=== PATIENT | male | born 1970 | race African-American/Black ===

== ENCOUNTER 2023-08-31 13:24 | Observation (INO) | payer OTHER, SELFPAY ==
--- NOTE | ~2023-08-31 | US_ITS ---
EXAMINATION: US renal BI DATE: 09/01/2023 09:11 INDICATION: TECHNIQUE: Multiple grayscale and Doppler ultrasound images of the kidneys were obtained. COMPARISON: None. FINDINGS: The right kidney measures 11.0 x 3.9 x 4.4 cm. The left kidney is obscured. The right kidne y demonstrates normal parenchymal echogenicity. There is no hydronephrosis. The bladder is mildly dis tended but otherwise unremarkable. IMPRESSION: 1. Normal right kidney without hydronephrosis. Left kidney obscured. Reviewed, dictated and finalized at location B. OGIC TECHNICIAN
[2023-08-31 14:07] VITALS: BP 190/96; PULSE 93; RESP 20; TEMP 36.3; O2SAT 97
[2023-08-31 14:23] LABS: Glucose Point of Care > 500 mg/dl (65-105)
--- NOTE | 2023-08-31 14:30 | ED.GENADULT ---
HPI - General Adult General Chief complaint: Recheck/Abnormal Lab/Rx Stated complaint: ETOH withdrawal, high blood sugar Time Seen by Provider: 08/31/23 14:26 History of Present Illness HPI narrative: Patient denies any chest pain, shortness of breath, nausea, vomiting, abdominal pain, dysuria, hematuria, constipation, diarrhea, melena, hematochezia, fevers or chills. Patient also denies any headaches, dizziness, lightheadedness, blurry visions, focal weakness, numbness and or tingling. There are no other modifying, alleviating, or precipitating factors at this time. Related Data Allergies Allergy/AdvReac Type Severity Reaction Status Date / Time No Known Allergies Allergy Verified 08/31/23 14:14 Review of Systems Review of Systems: All systems are reviewed and are negative unless stated otherwise in the HPI. Exam Narrative: General: Alert, awake, afebrile, in no acute distress. HEENT: PERRL, no rhinorrhea, no post nasal drip, oropharynx clear. Neck: Trachea midline, no JVD, no lymphadenopathy. Cardiovascular: Regular rate and rhythm, no murmurs, rubs or gallops, no peripheral edema. Respiratory: Clear to auscultation bilaterally, no tachypnea, no wheezing, no rhonchi, no rubs, no respiratory distress. Abdomen: Soft, nontender, nondistended, no rebound, no guarding, no peritoneal signs. Musculoskeletal: No joint swelling or deformity, normal muscle tone. Skin: No rashes or petechia, no signs of infection. Psychiatric: Alert and oriented, normal behavior and judgment for situation. Neurological: Alert and oriented to person, place, and time. Follows all commands. No focal deficits, speech is clear and fluent. Course Vital Signs Vital signs: Vital Signs Temperature 97.4 F L 08/31/23 14:07 Pulse Rate 93 08/31/23 14:07 Respiratory Rate 20 08/31/23 14:07 Blood Pressure 190/96 H 08/31/23 14:07 Pulse Oximetry 97 08/31/23 14:07 Oxygen Delivery Room Air 08/31/23 14:07 Temperature 97.4 F L 08/31/23 14:07 Pulse Rate 94 08/31/23 16:35 Respiratory Rate 20 08/31/23 16:35 Blood Pressure 150/99 H 08/31/23 16:35 Pulse Oximetry 98 08/31/23 16:35 Oxygen Delivery Room Air 08/31/23 14:07 Medical Decision Making MDM Narrative Medical decision making narrative: The patient was evaluated by myself in the emergency department. History is obtained from patient who is an independent historian and physical exam was performed. External medical records were reviewed at this time. IV was established and pertinent tests were ordered. Patient was administered a 2 L fluid bolus with normal saline and maintenance fluids at a rate of 150 cc/hour. EKG was obtained at 1550 which revealed sinus rhythm at a rate of 93 beats per minute with [address] elevation in leads V1 &V2 which is consistent with patient's hyperkalemia of 6.9. T-wave inversion in leads V5 and V6. EKG was independently interpreted by me and is currently pending official cardiology read. Patient denies any chest pain within the last week and is currently chest pain-free. Repeat EKG obtained at 1732 revealed sinus tachycardia rate of 102 beats per minute with similar findings to previous EKG. Laboratory results obtained revealing a potassium level of 6.9, sodium of 115, 136 after correcting for hyperglycemia, potassium 6.7, chloride 75, bicarb 19, anion gap 21, BUN 35, creatinine 1.70, glucose of 1339, magnesium 2.8, beta hydroxybutyrate 4.31. Urinalysis revealed 3+ glucose, 1+ ketones. At this time, patient was started on an insulin drip at a rate of 0.1 units/kg. Differential diagnosis considerations include DKA versus HHS. Comorbidities impacting this visit include undiagnosed diabetes mellitus. I have evaluated and discussed social determinants of health with the patient that could potentially impact subsequent diagnosis and treatment plans. On repeat assessment of the patient, reevaluation revealed that the patient is doing well
[2023-08-31] MEDS: SODIUM CHLORIDE 0.9% IV 1,000 ML 999 ML IV CONT ×3 (14:41→18:11)
[2023-08-31 14:44] LABS: Basophils Absolute Auto 0.1 K/mm3 (0.0-0.1); Basophils Percent Auto 0.6 % (0.2-1.2); Hemoglobin 12.5 g/dL (14.0-18.0); Immature Granulocyte Absolute 0.04 K/mm3 (0.00-0.031); Immature Granulocyte Percent A 0.5 % (0-0.5); Lymphocytes Absolute Auto 0.74 K/mm3 (0.9-3.2); Lymphocytes Percent Auto 8.6 % (18.3-44.2); Mean Corpuscular HGB Conc 30.5 g/dl (32-36); Mean Corpuscular Hemoglobin 21.8 pg (26-34); Mean Corpuscular Volume 71.6 fl (80-100); Monocytes Absolute Auto 0.7 K/mm3 (0.1-0.6); Monocytes Percent Auto 7.5 % (2.6-8.5); Neutrophils Absolute Auto 7.1 K/mm3 (1.3-6.7); Neutrophils Percent Auto 82.8 % (45.5-73.1); Platelet Count Result 485 k/mm3 (150-375); Red Blood Count 5.73 M/mm3 (4.6-6.20); Red Cell Distribution Width 15.6 % (11.5-14.5); White Blood Count 8.6 K/mm3 (4.5-10.0)
[2023-08-31 14:47] VITALS: BP 159/89; PULSE 93; RESP 20; O2SAT 98
[2023-08-31 14:55] LABS: Anisocytosis 1+ (NORMAL); Microcytosis 1+ (NORMAL); Platelet Estimate Increased (Adequate)
[2023-08-31 14:56] LABS: Ovalocytes 1+ (NORMAL); Schistocytes None Seen (NORMAL)
[2023-08-31 14:59] LABS: Beta-Hydroxybutyrate/Acetoacetate 4.31 mmol/L (0.02-0.27)
[2023-08-31 15:03] LABS: Appearance Urine Clear (Clear); Bilirubin Urine Negative (Negative); Blood Urine Negative (Negative); Color Urine Yellow (Yellow); Glucose Urine UA 3+ mg/dL (Negative); Ketones Urine 1+ mg/dL (Negative); Leukocyte Esterase Ur Negative LEU/UL (Negative); Nitrate Urine Negative (Negative); Protein Urine Negative (Negative); Specific Grav Ur 1.031 (1.001-1.035); Urobilinogen Urine 0.2 mg/dL (<2.0)
[2023-08-31 15:14] LABS: Add Urine Microscopic? NO
[2023-08-31 15:25] LABS: Alanine Aminotransferase 27 U/L (6-50); Albumin Level 4.2 g/dL (3.5-5.1); Alkaline Phosphatase 183 U/L (38-126); Anion Gap 21 mmol/L (8-16); Aspartate Amino Transferase 26 U/L (17-59); Bilirubin,Total 0.8 mg/dL (0.2-1.3); Blood Urea Nitrogen 35 mg/dL (9-20); Calcium 9.1 mg/dL (8.4-10.2); Carbon Dioxide 19 mmol/L (22-30); Chloride 75 mmol/L (98-107); Estimated CRCL calculation 54 ml/min; Estimated Glomerular Filt Rate 51; Magnesium 2.8 mg/dL (1.6-2.3); Potassium 6.7 mmol/L (3.4-5.0); Sodium 115 mmol/L (137-145)
--- NOTE | 2023-08-31 15:32 | ECG_ITS ---
Measurements Intervals [place] Rate: 93 P: 71 NH: 178 QRS: 64 QRSD: 97 T: 117 QT: 364 QTc: 453 Interpretive Statements SINUS RHYTHM POSSIBLE RIGHT ATRIAL ENLARGEMENT [0.25mV P WAVE] LEFT ATRIAL ENLARGEMENT [-0.15mV P WAVE IN V1/V2] LEFT VENTRICULAR HYPERTROPHY AND ST-T CHANGE [VOLTAGE CRITERIA PLUS ST/T ABNORMALITY] POSSIBLE SEPTAL MYOCARDIAL INFARCTION , OF INDETERMINATE AGE [30 ms Q WAVE IN V1/V2] ABNORMAL ECG NO PREVIOUS ECG AVAILABLE FOR COMPARISON Electronically Signed On 09-01-2023 7:06:47 BENZOL STILL OPERATOR by Rajiv Chakraborty M.D.
[2023-08-31 15:33] LABS: Glucose 1339 mg/dL (65-110)
[2023-08-31] MEDS: INSULIN HUMAN REGULAR (*BKC) 100 UNITS in SODIUM CHLORIDE 0.9% IV 99 ML 11.5 UNITS IV CONT (16:32)
[2023-08-31] MEDS: SODIUM CHLORIDE 0.9% IV 1,000 ML 150 ML IV CONT ×2 (16:32→23:42)
[2023-08-31 16:35] VITALS: BP 150/99; PULSE 94; RESP 20; O2SAT 98
[2023-08-31 17:03] LABS: Anion Gap 18 mmol/L (8-16); Blood Urea Nitrogen 37 mg/dL (9-20); Calcium 8.9 mg/dL (8.4-10.2); Carbon Dioxide 20 mmol/L (22-30); Chloride 79 mmol/L (98-107); Estimated CRCL calculation 54 ml/min; Estimated Glomerular Filt Rate 51; Glucose 1181 mg/dL (65-110); Potassium 6.9 mmol/L (3.4-5.0); Sodium 117 mmol/L (137-145)
--- NOTE | 2023-08-31 17:13 | ECG_ITS ---
Measurements Intervals [place] Rate: 102 P: 70 NV: 140 QRS: 61 QRSD: 94 T: 93 QT: 336 QTc: 438 Interpretive Statements SINUS TACHYCARDIA LEFT ATRIAL ENLARGEMENT [-0.15mV P WAVE IN V1/V2] LEFT VENTRICULAR HYPERTROPHY AND ST-T CHANGE [VOLTAGE CRITERIA PLUS ST/T ABNORMALITY] ABNORMAL ECG COMPARED TO ECG 08/31/2023 15:50:59 NO SIGNIFICANT CHANGE Electronically Signed On 09-01-2023 15:27:50 AGRICULTURAL EQUIPMENT OPERATOR by Rajiv Chakraborty M.D.
[2023-08-31 17:20] LABS: Hemoglobin A1C 13.5 % (<5.7)
[2023-08-31 17:35] LABS: Glucose Point of Care > 500 mg/dl (65-105)
[2023-08-31 18:21] VITALS: BP 148/84; PULSE 102; RESP 20; O2SAT 96
--- NOTE | 2023-08-31 18:30 | ADMGEN ---
This patient, Daniela Tian, was admitted to Intensive Care Unit-7. Patient/family oriented to hospital policies and general routines including ID bracelet, bed and alarms, visiting hours, pain management, procedures, bathroom and other care routines, personal items, smoking policy, room service/diet, and visiting hours. Information on how to activate the Rapid Response Team has been discussed. Patient/Family are encouraged to report perceived risks to care and to ask questions if they do not understand what they are told or what they should do.
[2023-08-31 18:41] LABS: Glucose Point of Care > 500 mg/dl (65-105)
[2023-08-31 19:45] LABS: Glucose Point of Care > 500 mg/dl (65-105)
[2023-08-31 20:00] VITALS: BP 148/125; PULSE 93; RESP 18; TEMP 36.6; O2SAT 94
[2023-08-31 21:18] LABS: Anion Gap 12 mmol/L (8-16); Blood Urea Nitrogen 32 mg/dL (9-20); Calcium 9.5 mg/dL (8.4-10.2); Carbon Dioxide 25 mmol/L (22-30); Chloride 93 mmol/L (98-107); Estimated CRCL calculation 56 ml/min; Estimated Glomerular Filt Rate 55; Glucose 479 mg/dL (65-110); Potassium 4.1 mmol/L (3.4-5.0); Sodium 130 mmol/L (137-145)
[2023-08-31 22:00] VITALS: BP 142/76; PULSE 94; RESP 22; O2SAT 90
[2023-08-31 22:20] LABS: Glucose Point of Care 441 mg/dl (65-105)
[2023-08-31] MEDS: INSULIN HUMAN REGULAR (*BKC) 100 UNITS in SODIUM CHLORIDE 0.9% IV 99 ML 25 UNITS IV CONT (22:30)
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
[2023-08-31 23:56] LABS: Glucose Point of Care 263 mg/dl (65-105)
[2023-08-31 23:56] LABS: Glucose Point of Care > 500 mg/dl (65-105)
[2023-09-01] VITALS (13 sets, daily range): BP systolic 122–151; BP diastolic 76–114; PULSE 88–108; RESP 14–23; TEMP 36.1–37.2; O2SAT 92–97; BMI 40.1
[2023-09-01 01:57] LABS: Immature Reticulocyte Fraction 5.5 % (3.0-15.9); Reticulocyte Hemoglobin Conten 26.5 pg (28.2-35.7); Reticulocyte Percent 0.66 % (0.7-4.3); Reticulocytes Absolute 0.04 M/mm3 (0.02-0.1)
[2023-09-01 02:05] LABS: Glucose Point of Care 68 mg/dl (65-105)
[2023-09-01 02:05] LABS: Glucose Point of Care 57 mg/dl (65-105)
[2023-09-01 02:08] LABS: Iron 40 ug/dL (49-181)
[2023-09-01 02:09] LABS: Anion Gap 11 mmol/L (8-16); Blood Urea Nitrogen 28 mg/dL (9-20); Calcium 9.5 mg/dL (8.4-10.2); Carbon Dioxide 25 mmol/L (22-30); Chloride 101 mmol/L (98-107); Estimated CRCL calculation 69 ml/min; Estimated Glomerular Filt Rate > 60; Glucose 86 mg/dL (65-110); Potassium 3.4 mmol/L (3.4-5.0); Sodium 137 mmol/L (137-145)
[2023-09-01] MEDS: KCL 20 MEQ/D5/0.45% SOD CHL 1,000 ML 150 ML IV CONT (02:15)
[2023-09-01] MEDS: DEXTROSE 50% 25 GM/50 ML SYRINGE IV PUSH (02:30)
[2023-09-01 02:36] LABS: Percent Iron Saturation 17 % (20-50)
[2023-09-01 02:40] LABS: Glucose Point of Care 235 mg/dl (65-105)
[2023-09-01] MEDS: INSULIN HUMAN REGULAR (*BKC) 100 UNITS in SODIUM CHLORIDE 0.9% IV 99 ML 12.8 UNITS IV CONT (03:01)
[2023-09-01 03:33] LABS: Folic Acid 5.2 ng/mL (2.76->20)
[2023-09-01 03:42] LABS: Glucose Point of Care 125 mg/dl (65-105)
[2023-09-01 04:57] LABS: Hematocrit 37.4 % (42.0-52.0); Hemoglobin 12.2 g/dL (14.0-18.0); Mean Corpuscular HGB Conc 32.6 g/dl (32-36); Mean Corpuscular Hemoglobin 22.6 pg (26-34); Mean Corpuscular Volume 69.1 fl (80-100); Mean Platelet Volume 10.5 fl (7.4-10.4); Platelet Count Result 458 k/mm3 (150-375); Red Blood Count 5.41 M/mm3 (4.6-6.20); Red Cell Distribution Width 14.7 % (11.5-14.5); White Blood Count 9.9 K/mm3 (4.5-10.0)
[2023-09-01 05:00] LABS: Glucose Point of Care 128 mg/dl (65-105)
[2023-09-01 05:15] LABS: Anion Gap 5 mmol/L (8-16); Blood Urea Nitrogen 28 mg/dL (9-20); Calcium 9.1 mg/dL (8.4-10.2); Carbon Dioxide 30 mmol/L (22-30); Chloride 101 mmol/L (98-107); Estimated CRCL calculation 69 ml/min; Estimated Glomerular Filt Rate > 60; Glucose 111 mg/dL (65-110); Magnesium 2.6 mg/dL (1.6-2.3); Potassium 4.4 mmol/L (3.4-5.0); Sodium 136 mmol/L (137-145)
[2023-09-01] MEDS: INSULIN GLARGINE (*BKC) 100 UNITS/ML 15 UNITS SUB-Q (06:03)
[2023-09-01] MEDS: THIAMINE HCL 100 MG TABLET PO (08:02)
[2023-09-01] MEDS: FOLIC ACID 1 MG TABLET PO (08:02)
[2023-09-01] MEDS: chlordiazePOXIDE (*CRX) 25 MG CAPSULE PO ×4 (08:02→23:30)
[2023-09-01] MEDS: ENOXAPARIN 40 MG/0.4 ML SYRINGE SUB-Q (08:02)
[2023-09-01 08:07] LABS: Glucose Point of Care 275 mg/dl (65-105)
--- NOTE | 2023-09-01 08:40 | PC.NURSE ---
Patient refused MRSA swab
--- NOTE | 2023-09-01 08:40 | PC.NURSE ---
Patient placed his $321 in envelope, sealed envelope and charge nurse, Miesha Costa, placed envelope in safe as per facility protocol
--- NOTE | 2023-09-01 09:11 | WPDCNINT ---
Assessment and Plan Assessment and plan (1) DKA (diabetic ketoacidosis): Code(s): E11.10 - Type 2 diabetes mellitus with ketoacidosis without coma Status: Acute Assessment and Plan: Patient presented the ED with complains of polyuria, polydipsia, generalized malaise, nausea/vomiting. Was found to be in DKA with elevated beta hydroxybutyrate, anion gap metabolic acidosis, blood sugars > 600, urinalysis was positive for ketones and glucose. -Patient was given 3 L IV fluid bolus and started on insulin infusion per DKA protocol and transferred to the ICU for further management -early this morning patient was transition to long-acting insulin and sliding scale insulin, will discontinue insulin infusion per DKA protocol -will start diabetic diet (2) New onset type 2 diabetes mellitus: Code(s): E11.9 - Type 2 diabetes mellitus without complications Status: Acute Assessment and Plan: New onset diabetes, will have environmental educator and dietitian evaluate the patient -hemoglobin A1c this admission was 13.5 (3) Renal failure: Code(s): N19 - Unspecified kidney failure Status: Acute Assessment and Plan: Patient presented with acute renal failure likely related to hypovolemia, DKA -adequately fluid-resuscitated -creatinine down to normal -09/01: Renal ultrasound has been done and pending report (4) Hyperkalemia: Code(s): E87.5 - Hyperkalemia Status: Acute Assessment and Plan: Hyperkalemia on admission, likely related to diabetic ketoacidosis and anion gap metabolic acidosis -RESOLVED (5) Alcohol abuse: Code(s): F10.10 - Alcohol abuse, uncomplicated Status: Acute Assessment and Plan: Patient is a daily drinker but has not had a drink for a month according to him since he was feeling unwell and this bad. -continue CIWA protocol -have ordered Librium Plan DVT prophylaxis: Lovenox Stress ulcer prophylaxis: Not indicated Nutrition: Diabetic diet Code Status: Full code Critical Care Time Spent: 44 minutes Due to a high probability of clinically significant, life threatening deterioration, the patient required my highest level of preparedness to intervene emergently and I personally spent this critical care time directly and personally managing the patient. This critical care time included obtaining a history; examining the patient; pulse oximetry; ordering and review of studies; arranging urgent treatment with development of a management plan; evaluation of patient's response to treatment; frequent reassessment; and discussions with other providers. It was exclusive of separately billable procedures and treating other patients and teaching time. Please see Assessment and Plan section and the rest of the note for further information on patient assessment and treatment This dictation may have been done utilizing a voice recognition system. Attempts have been made to correct errors. However, there may be uncorrected grammatical, spelling, and recognitions errors present. Pre Sales Technical Consultant Consult Note Consult date: 09/01/23 Reason for consult: Diabetic ketoacidosis, polyuria, polydipsia, frequent nausea, generalized malaise, weight loss HPI: Daniela Tian is a 53 year old male with past medical history of alcohol abuse presented to the ED on 08/31/2023 with complaints of polyuria, polydipsia, frequent nausea, vomiting, generalized malaise, he also stated that he lost approximately 30 lb over several months. Family noted that he was more lethargic and slow to respond so was brought to the [place] ER with blood sugars were over 600, anion gap metabolic acidosis with elevated beta hydroxybutyrate. Urine analysis was positive for glucose and ketones creatinine was 1.70 on admission. Patient was given 3 L IV fluids in the ER and started on insulin infusion and transfer the ICU for further management Patient seen and examined in the ICU this morning, patient is a p
[2023-09-01] MEDS: INSULIN GLARGINE (*BKC) 100 UNITS/ML 10 UNITS SUB-Q (10:07)
[2023-09-01] MEDS: INSULIN ASPART (*BKC) 100 UNITS/ML SUB-Q ×2 (11:22→17:49)
[2023-09-01 11:26] LABS: Glucose Point of Care 411 mg/dl (65-105)
[2023-09-01 11:55] LABS: Glucose Point of Care 363 mg/dl (65-105)
[2023-09-01 11:55] LABS: Glucose Point of Care 192 mg/dl (65-105)
[2023-09-01] MEDS: INSULIN ASPART (*BKC) 100 UNITS/ML 10 UNITS SUB-Q ×2 (12:23→17:48)
[2023-09-01 12:50] LABS: Anion Gap 7 mmol/L (8-16); Blood Urea Nitrogen 26 mg/dL (9-20); Calcium 8.4 mg/dL (8.4-10.2); Carbon Dioxide 23 mmol/L (22-30); Chloride 97 mmol/L (98-107); Estimated CRCL calculation 74 ml/min; Estimated Glomerular Filt Rate > 60; Glucose 351 mg/dL (65-110); Potassium 4.2 mmol/L (3.4-5.0); Sodium 127 mmol/L (137-145)
--- NOTE | 2023-09-01 14:30 | PC.NURSE ---
This patient, Daniela Tian, was transferred to [facility] on 09/01/23 at 1430. Personal belongings sent with patient. Report given to Ashley. Appropriate documentation sent with patient.
--- NOTE | 2023-09-01 15:00 | PC.NURSE ---
This patient, Daniela Tian, was received from ICU 7 on 09/01/23 at 1500. Patient/family oriented to unit policies and routines
[2023-09-01 16:28] LABS: Glucose Point of Care 212 mg/dl (65-105)
[2023-09-01 16:30] LABS: Anion Gap 8 mmol/L (8-16); Blood Urea Nitrogen 25 mg/dL (9-20); Calcium 9.1 mg/dL (8.4-10.2); Carbon Dioxide 24 mmol/L (22-30); Chloride 98 mmol/L (98-107); Estimated CRCL calculation 69 ml/min; Estimated Glomerular Filt Rate > 60; Glucose 199 mg/dL (65-110); Potassium 3.8 mmol/L (3.4-5.0); Sodium 130 mmol/L (137-145)
[2023-09-01] MEDS: INSULIN GLARGINE (*BKC) 100 UNITS/ML 25 UNITS SUB-Q (20:38)
[2023-09-01 20:57] LABS: Glucose Point of Care 134 mg/dl (65-105)
[2023-09-02 04:00] VITALS: BP 122/89
[2023-09-02] MEDS: chlordiazePOXIDE (*CRX) 25 MG CAPSULE PO ×2 (05:49→11:47)
[2023-09-02 05:56] LABS: Basophils Absolute Auto 0.1 K/mm3 (0.0-0.1); Basophils Percent Auto 1.1 % (0.2-1.2); Eosinophils Absolute Auto 0.4 K/mm3 (0-0.3); Eosinophils Percent Auto 6.7 % (0-4.4); Hematocrit 39.2 % (42.0-52.0); Hemoglobin 12.3 g/dL (14.0-18.0); Immature Granulocyte Absolute 0.02 K/mm3 (0.00-0.031); Immature Granulocyte Percent A 0.3 % (0-0.5); Lymphocytes Absolute Auto 1.66 K/mm3 (0.9-3.2); Lymphocytes Percent Auto 25.2 % (18.3-44.2); Mean Corpuscular HGB Conc 31.4 g/dl (32-36); Mean Corpuscular Hemoglobin 22.1 pg (26-34); Mean Corpuscular Volume 70.4 fl (80-100); Mean Platelet Volume 10.7 fl (7.4-10.4); Monocytes Absolute Auto 0.8 K/mm3 (0.1-0.6); Monocytes Percent Auto 12.1 % (2.6-8.5); Neutrophils Absolute Auto 3.6 K/mm3 (1.3-6.7); Neutrophils Percent Auto 54.6 % (45.5-73.1); Platelet Count Result 401 k/mm3 (150-375); Red Blood Count 5.57 M/mm3 (4.6-6.20); Red Cell Distribution Width 15.2 % (11.5-14.5); White Blood Count 6.6 K/mm3 (4.5-10.0)
[2023-09-02 06:00] VITALS: BP 127/84; PULSE 79; RESP 18; TEMP 36.6; O2SAT 98
[2023-09-02 06:07] LABS: Anion Gap 8 mmol/L (8-16); Blood Urea Nitrogen 25 mg/dL (9-20); Calcium 8.5 mg/dL (8.4-10.2); Carbon Dioxide 24 mmol/L (22-30); Chloride 99 mmol/L (98-107); Estimated CRCL calculation 69 ml/min; Estimated Glomerular Filt Rate > 60; Glucose 259 mg/dL (65-110); Magnesium 2.2 mg/dL (1.6-2.3); Sodium 131 mmol/L (137-145)
[2023-09-02 06:57] LABS: Microcytosis 1+ (NORMAL); Platelet Estimate Adequate (Adequate); Schistocytes Rare (NORMAL)
[2023-09-02 06:58] LABS: Target Cells 1+ (NORMAL)
[2023-09-02 08:08] LABS: Glucose Point of Care 290 mg/dl (65-105)
[2023-09-02] MEDS: INSULIN ASPART (*BKC) 100 UNITS/ML 10 UNITS SUB-Q ×2 (08:20→11:48)
[2023-09-02] MEDS: INSULIN ASPART (*BKC) 100 UNITS/ML SUB-Q ×2 (08:21→11:49)
[2023-09-02] MEDS: ENOXAPARIN 40 MG/0.4 ML SYRINGE SUB-Q (08:22)
[2023-09-02] MEDS: FOLIC ACID 1 MG TABLET PO (08:23)
[2023-09-02] MEDS: THIAMINE HCL 100 MG TABLET PO (08:23)
[2023-09-02 11:26] LABS: Glucose Point of Care 317 mg/dl (65-105)
--- NOTE | 2023-09-02 13:33 | PM.DS ---
DS: Admitting Diagnosis Discharge Date September 02, 2023 Admitting Diagnosis DKA DS: Discharge Diagnosis Discharge Diagnosis (1) Alcohol abuse: Code(s): F10.10 - Alcohol abuse, uncomplicated Status: Acute (2) New onset type 2 diabetes mellitus: Code(s): E11.9 - Type 2 diabetes mellitus without complications Status: Acute (3) Diabetic ketoacidosis associated with type 2 diabetes mellitus: Code(s): E11.10 - Type 2 diabetes mellitus with ketoacidosis without coma Status: Acute (4) DKA (diabetic ketoacidosis): Code(s): E11.10 - Type 2 diabetes mellitus with ketoacidosis without coma Status: Acute (5) Renal failure: Code(s): N19 - Unspecified kidney failure Status: Acute DS: Summary Hospital Course Hospital Course: 53-year-old black male with past medical history alcohol abuse who presented to [place] ED with complaints of polyuria polydipsia nausea vomiting malaise and 30 lb weight loss over several months. The patient was admitted for DKA and renal failure. With the DKA protocol his renal failure and acidosis resolved. His hemoglobin A1c on admission was 13.5%. This is a new diagnosis diabetes mellitus. Extensive counseling and education has been provided to the patient including disease course, adverse effects of medications, lifestyle modification needed, and very importantly follow-up. Not have a PCP and reports he will have close follow-up and it is recommended he see a new 1 within a week. Have ordered Diabetes Education therapy. BMP in 3 days. He reports his last drink was a month ago. Had no signs of withdrawal. He is discharged on 25 units of Lantus q.p.m. and 12 units of lispro t.i.d. with meals and again stressed to the patient he should have close follow-up for management of this with his new PCP. He has been provided glucose meter check and advised to check his blood sugars 3 times per day and report high or low sugars to his PCP for further management. The patient is understanding and amenable to this plan and he knows to return to the ER if he has return of symptoms. Patient was full code during his admission Time Spent with Patient Time attestation: Total time spent providing and/or coordinating discharge services: Exam Const: General: cooperative and no acute distress Other: Obese Resp: Effort & Inspection: normal respiratory effort Auscultation: clear to auscultation bilaterally Cardio: Rate: regular rate Rhythm: regular rhythm Heart sounds: S1 normal heart sound present and S2 normal heart sound present GI: GI Palp: No abdominal tenderness Auscultation: normal bowel sounds DS: Data Data Completed and Pending Labs on day of discharge: Labs from last 24 hours 09/02/23 09/02/23 09/02/23 11:17 07:56 05:49 WBC 6.6 RBC 5.57 Hgb 12.3 L Hct 39.2 L MCV 70.4 L MCH 22.1 L MCHC 31.4 L RDW 15.2 H Plt Count 401 H MPV 10.7 H Immature Gran % (Auto) 0.3 Neut % (Auto) 54.6 Lymph % (Auto) 25.2 [place] % (Auto) 12.1 H Eos % (Auto) 6.7 H Baso % (Auto) 1.1 Lymph # (Auto) 1.66 [place] # (Auto) 0.8 H Eos # (Auto) 0.4 H Baso # (Auto) 0.1 Abs Immat Gran (auto) 0.02 Absolute Neuts (auto) 3.6 Absolute Nucleated RBC 0.0 Nucleated RBC % 0.0 Platelet Estimate Adequate Microcytosis 1+ Target Cells 1+ Schistocytes Rare Sodium 131 L Potassium 4.0 Chloride 99 Carbon Dioxide 24 Anion Gap 8 BUN 25 H Creatinine 1.30 Estim Creat Clear Calc 69 Estimated GFR > 60 Glucose 259 H POC Capillary Glucose 317 H 290 H Calcium 8.5 Magnesium 2.2 09/01/23 09/01/23 09/01/23 20:07 16:18 16:09 WBC RBC Hgb Hct MCV MCH MCHC RDW Plt Count MPV Immature Gran % (Auto) Neut % (Auto) Lymph % (Auto) [place] % (Auto) Eos % (Auto) Baso % (Auto) Lymph # (Auto) [place] # (Auto)
== END 2023-09-02 14:40 | disposition home or self-care (01) ==
LOC: ANHED 17:26 → ANHICU 19:57 → ANH3MEDSUR 09-02 13:33 → ANHICU 09-04 11:09
PROVIDERS: Internal Medicine; Physician Assistant; Admitting Provider Internal Medicine; Emergency Provider Emergency Medicine; Visit Provider General Practice
DX: E11.10 Type 2 diabetes mellitus with ketoacidosis without coma (principal); N19 Unspecified kidney failure; E87.5 Hyperkalemia; I10 Essential (primary) hypertension; D50.9 Iron deficiency anemia, unspecified; R03.0 Elevated blood-pressure reading, without diagnosis of hypertension; R94.31 Abnormal electrocardiogram [ECG] [EKG]; F10.10 Alcohol abuse, uncomplicated; F12.90 Cannabis use, unspecified, uncomplicated
CPT/HCPCS: 36415; 76775; 80048; 80053; 81003; 82010; 82607; 82728; 82746; 82948; 83036; 83540; 83550; 83735; 84443; 85025; 85027; 85046; 93005; 96360; 96361; 96365; 96366; 96368; 96372; 96375; 99285; A9270; G0378; J1650; J1815; J3480; J7030

== ENCOUNTER 2025-04-12 15:05 | Inpatient (IN) | payer OTHER, SELFPAY ==
[2025-04-12] VITALS (25 sets, daily range): BP systolic 146–172; BP diastolic 65–96; PULSE 82–101; RESP 16–22; TEMP 36.8; O2SAT 96–100
--- NOTE | ~2025-04-12 | US_ITS ---
EXAMINATION: US abdomen limited DATE: 04/13/2025 07:56 INDICATION: Abdominal pain. TECHNIQUE: Multiple grayscale and Doppler ultrasound images of the abdomen were obtained. COMPARISON: CT 04/12/2025 FINDINGS: The visualized portions of the head and body of the pancreas are normal, but ultrasound has poor sensitivity for pancreatitis. The liver is normal without focal lesion. There is normal flow in main portal vein. The gallbladder is normal in size. No gallstones or gallbladder wall thickening. T here is no sonographic Phelps's sign. The common duct is dilated to 9 mm. IMPRESSION: 1. Dilated common duct. Reviewed, dictated and finalized at location E. IMPRESSION: 1. Dilated common duct.
--- NOTE | ~2025-04-12 | CT_ITS ---
EXAMINATION: CT abdomen pelvis w con DATE: 04/12/2025 23:14 INDICATION: Epigastric abdominal pain. Nausea and vomiting. TECHNIQUE: Computed tomography (CT) of the abdomen and pelvis was performed with 100 mL Omnipaque 350 intravenous contrast. Automated exposure control and iterative reconstruction technique were employed. The dose-length product was 1685.72 mGy-cm. COMPARISON: None. FINDINGS: The visualized portions of the lung bases demonstrate mild atelectasis. No pleural effusion. The heart size is normal. No pericardial effusion. The liver, gallbladder, and spleen are normal. There is fat stranding and fluid around the pancreas, consistent with acute interstitial pancreatitis. The adrenal glands are normal. 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 There is a 6 mm cyst in left kidney. There is a right inguinal hernia containing fat. There are no dilated loops of bowel. The appendix is normal. There are no pathologically enlarged lymph nodes. There is a radiopaque foreign body in right parasymphyseal pubis. There is mild thoracic and lumbar spondylosis. IMPRESSION: 1. Acute interstitial pancreatitis. Reviewed, dictated and finalized at location E.
--- NOTE | 2025-04-12 15:16 | ECG_ITS ---
Test Date: 2025-04-12 15:22:30 Measurements Intervals [place] Rate: 83 P: 62 IA: 168 QRS: 57 QRSD: 98 T: 89 QT: 391 QTc: 460 Interpretive Statements SINUS RHYTHM NONSPECIFIC T-WAVE ABNORMALITY ABNORMAL ECG No previous ECG available for comparison Electronically Signed On 04-13-2025 08:16:50 CDT by Rajiv Chakraborty M.D.
[2025-04-12] MEDS: MAG HYDROX/AL HYDROX/SIMETH 30 ML UDC PO (20:04)
[2025-04-12] MEDS: ONDANSETRON HCL ODT 4 MG TABLET PO (20:04)
[2025-04-12 20:06] LABS: Hematocrit 38.8 % (42.0-52.0); Hemoglobin 12.6 g/dL (14.0-18.0); Immature Granulocyte Percent A 0.3 % (0-0.5); Lymphocytes Absolute Auto 0.97 K/mm3 (0.9-3.2); Mean Corpuscular HGB Conc 32.5 g/dl (32-36); Mean Corpuscular Hemoglobin 23.1 pg (26-34); Mean Corpuscular Volume 71.1 fl (80-100); Nucleated Red Blood Cells Absolute Auto 0.000 K/mm3 (0.0-0.012); Nucleated Red Blood Cells Perc 0.0 % (0.0-0.2); Platelet Count Result 256 k/mm3 (150-375); Red Blood Count 5.46 M/mm3 (4.6-6.20); White Blood Count 9.5 K/mm3 (4.5-10.0)
[2025-04-12 20:18] LABS: Anisocytosis 1+; Schistocytes None Seen
[2025-04-12 20:24] LABS: Alanine Aminotransferase 65 U/L (6-50); Albumin Level 4.6 g/dL (3.5-5.1); Alkaline Phosphatase 69 U/L (38-126); Anion Gap 9 mmol/L (4-12); Aspartate Amino Transferase 51 U/L (17-59); Bilirubin,Total 1.1 mg/dL (0.2-1.3); Blood Urea Nitrogen 16 mg/dL (9-20); Calcium 9.1 mg/dL (8.4-10.2); Carbon Dioxide 25 mmol/L (22-30); Chloride 99 mmol/L (98-107); Estimated CRCL calculation 84 ml/min; Estimated Glomerular Filt Rate > 60; Glucose 148 mg/dL (65-110); Potassium 3.7 mmol/L (3.4-5.0); Sodium 133 mmol/L (137-145); Total Protein 8.5 g/dL (6.3-8.2)
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
[2025-04-12 21:34] LABS: Lipase 6075 U/L (23-300)
[2025-04-12] MEDS: KETOROLAC 15 MG/ML VIAL (*BKC) IV PUSH (21:42)
[2025-04-12] MEDS: MORPHINE SULFATE (*CRX) 2 MG/ML INJ IV PUSH (21:42)
[2025-04-12] MEDS: LACTATED RINGERS 1,000 ML 999 ML IV CONT (21:43)
[2025-04-13] VITALS (15 sets, daily range): BP systolic 138–181; BP diastolic 81–101; PULSE 96–106; RESP 17–20; TEMP 35.8–36.6; O2SAT 91–100; BMI 52.7
[2025-04-13] MEDS: LACTATED RINGERS 1,000 ML 999 ML IV CONT (01:37)
[2025-04-13] MEDS: MORPHINE SULFATE (*CRX) 4 MG/ML INJ IV PUSH (01:37)
[2025-04-13] MEDS: LACTATED RINGERS 1,000 ML 125 ML IV CONT ×3 (02:10→20:26)
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
[2025-04-13] MEDS: HYDROmorphone HCL INJ (*CRX) 1 MG/ML SYR IV PUSH ×3 (06:56→22:38)
[2025-04-13 07:17] LABS: Hemoglobin A1C 6.2 % (<5.7)
--- NOTE | 2025-04-13 07:33 | ECG_ITS ---
Test Date: 2025-04-12 19:45:17 Measurements Intervals [place] Rate: 82 P: 63 OH: 176 QRS: 61 QRSD: 92 T: 84 QT: 399 QTc: 467 Interpretive Statements SINUS RHYTHM MODERATE T-WAVE ABNORMALITY, CONSIDER LATERAL ISCHEMIA [-0.1+ mV T-WAVE IN I/aVL/V5/V6] INTRAVENTRICULAR CONDUCTION DELAY ABNORMAL ECG Compared to ECG 04/12/2025 15:22:30 NO DIFFERENCE Electronically Signed On 04-13-2025 08:20:55 CDT by Rajiv Chakraborty M.D.
--- NOTE | 2025-04-13 07:42 | PM.IMPN ---
Progress Note: A&P Assessment and Plan (1) Pancreatitis: Code(s): K85.90 - Acute pancreatitis without necrosis or infection, unspecified Status: Acute Assessment and Plan: -the patient is NPO except for ice and meds. -CT abd/pelvis: Acute interstitial pancreatitis -abdominal US: dilated bile duct -most likely secondary to his alcohol intake. -daily lipase -lipase 6075 upon admission -continue with anti nausea medicine -continue with pain management -lipid panel wnl -GI consult - appreciate further recommendations -Possible need for ERCP given dilated CBD on US (2) DM2 (diabetes mellitus, type 2): Code(s): E11.9 - Type 2 diabetes mellitus without complications Status: Acute Assessment and Plan: -Accu-Cheks every 6 hours with sliding scale insulin. -check A1c. Last A1c in our system was 13.5 on 08/31/2023. -Lantus is on hold at this time. -his blood sugar was 148 today. -A1C 6.2% (04/12/2025) (3) Hypertension: Code(s): I10 - Essential (primary) hypertension Status: Acute Assessment and Plan: -p.r.n. hydralazine -home medications have not been verified yet. (4) Alcohol abuse: Code(s): F10.10 - Alcohol abuse, uncomplicated Status: Acute Assessment and Plan: -p.r.n. P.o. Ativan -Ciwa -the patient stated that he drinks about a pt of vodka daily. -p.o. Librium Subjective Date/time seen: 04/13/25 07:42 Interval history: 55-year-old male patient who drinks a pt of vodka daily. The patient came to the emergency room with epigastric discomfort and nausea. The patient has been drinking every day. He denies having any history of pancreatitis. 04/13/2025 Patient sitting comfortably bed at time of examination. Chest pain, shortness a breath/vomiting at this time. Still has some right upper quadrant discomfort goes across the upper aspect of his, but states that it has improved since yesterday. CT scan indicative of is acute interstitial pancreatitis, abdominal ultrasound shows dilated common duct. GI consult still pending at this time. Review of Systems Review of Systems: All systems reviewed & are unremarkable except as noted in HPI and below Constitutional: Constitutional: Reports as per HPI and Reports no additional constitutional complaints Eyes: Eyes: Reports as per HPI and Reports no additional eye complaints ENT: Reports system reviewed and no additional complaints, except as documented and Reports Normal hearing present Cardiovascular: Cardiovascular: Reports no additional cardiovascular complaints Respiratory: Respiratory: Reports as per HPI and Reports no additional respiratory complaints Gastrointestinal: Gastrointestinal: Reports as per HPI and Reports no additional gastrointestinal complaints Musculoskeletal: Musculoskeletal: Reports no additional musculoskeletal complaints Integumentary/Breasts: Skin/Breast: Reports system reviewed and no additional complaints, except as docu Neurologic: Reports system reviewed and no additional complaints, except as documented and Reports Normal hearing present Psychiatric: Psychiatric: Reports no additional psychiatric complaints and Reports as per HPI Hematologic/Lymphatic: Hematologic/Lymphatic: Reports no additional hematologic/lymphatic complaints Allergic/Immunologic: Allergic/Immunologic: Reports no additional allergic/immunologic complaints Exam Const: General: cooperative, no acute distress, well developed, awake, Physically active and average body habitus Nutritional Appearance: average body habitus Orientation/consciousness: oriented to person, oriented to place, oriented to time and patient oriented x3 Limitations: no limitations HENMT: Head: normal to inspection, No palpable skull fracture present and normocephalic Ears: hearing grossly normal bilaterally and external ears normal Eyes: General: appearance normal, both eyes and all related structures Alignment and Position: alignment normal Neck: Neck: normal visual inspection Chest: Chest palpation & inspection: normal inspection of the chest Resp: Effort & Inspection: normal respiratory effort Auscultation: clear to auscultation bilaterally Cardio: Palpation: normal PMI Rate: tachycardic Rhythm: regular rhythm Heart sounds: S1 normal heart sound present and S2 normal heart sound present Peripheral pulses: Peripheral pulses 2+ throughout GI: Inspection: normal to inspection Auscultation: normal bowel sounds Rectal Exam: deferred : General: Yes no CVA tenderness Back/Spine/Pelvis: Back: no CVA tenderness Cervical Spine: cervical ROM normal Thoracic/Lumbar Spine: thoracic and lumbar spine normal to inspection Pelvis: no pain with anterior-posterior compression Skin: General skin exam: normal color Lesions: no lesions Rashes: no rashes Trauma: no lacerations or abrasions Wounds: no wounds Hair: normal Nails: normal Neuro: General: oriented to person, oriented to place, oriented to time and patient oriented x3 Cranial nerves: Yes Normal hearing present Cognition (Neuro): normal cognition Speech: normal speech Gait exam (Neuro): Normal gait present Motor exam (neuro): 5/5 motor strength present throughout Sensory Exam: normal sensation Extrem: General: normal to inspection Right upper extremity: normal to inspection and shoulder/upper arm Left upper extremity: normal to inspection and shoulder/upper arm Right lower extremity: normal to inspection Left lower extremity: normal to inspection Psych: Appearance: grossly normal Mental Status: mental status grossly normal Speech and movement: Normal speech and movement present Affect: normal affect Attitude: cooperative Thought process: Normal thought process present Insight: Good insight present (Psych) Judgement: Good judgement present (Psych) Objective Data Vital Signs Vital Signs: Vital Signs - 24 hr 04/12/25 15:14 04/12/25 19:18 04/12/25 19:20 Temperature 98.2 F Pulse Rate 89 82 85 Respiratory Rate 16 22 H 19 Blood Pressure 171/82 H 164/92 H Pulse Oximetry 100 100 Oxygen Delivery Room Air 04/12/25 19:30 04/12/25 19:31 04/12/25 19:45 Temperature Pulse Rate 82 83 89 Respiratory Rate 21 H 21 H 19 Blood Pressure 164/85 H Pulse Oximetry 100 96 100 Oxygen Delivery 04/12/25 19:46 04/12/25 20:00 04/12/25 20:01 Temperature Pulse Rate 85 87 91 Respiratory Rate 19 20 18 Blood Pressure 160/81 H 161/96 H Pulse Oximetry 96 98 99 Oxygen Delivery 04/12/25 20:15 04/12/25 20:16 04/12/25 20:30 Temperature Pulse Rate 92 91 97 Respiratory Rate 18 22 H 21 H Blood Pressure 164/82 H Pulse Oximetry 96 100 97 Oxygen Delivery 04/12/25 20:31 04/12/25 20:45 04/12/25 21:00 Temperature Pulse Rate 89 Respiratory Rate 22 H Blood Pressure 172/83 H Pulse Oximetry 97 100 100 Oxygen Delivery 04/12/25 21:15 04/12/25 21:17 04/12/25 21:18 Temperature Pulse Rate Respiratory Rate Blood Pressure 146/65 H Pulse Oximetry 98 96 96 Oxygen Delivery 04/12/25 22:06 04/12/25 22:15 04/12/25 22:16 Temperature Pulse Rate 89 92 99 Respiratory Rate 19 18 21 H Blood Pressure 151/88 H Pulse Oximetry 98 Oxygen Delivery 04/12/25 22:30 04/12/25 22:31 04/12/25 22:32 Temperature Pulse Rate 94 100 97 Respiratory Rate 17 19 17 Blood Pressure 160/96 H Pulse Oximetry 97 99 97 Oxygen Delivery 04/12/25 23:23 04/13/25 01:12 04/13/25 01:15 Temperature Pulse Rate 101 H 101 H 106 H Respiratory Rate 18 19 18 Blood Pressure Pulse Oximetry 100 96 98 Oxygen Delivery 04/13/25 01:30 04/13/25 01:46 04/13/25 02:35 Temperature Pulse Rate 98 100 99 Respiratory Rate 19 19 18 Blood Pressure Pulse Oximetry 98 100 97 Oxygen Delivery 04/13/25 02:41 04/13/25 02:45 04/13/25 02:46 Temperature Pulse Rate 102 H 96 103 H Respiratory Rate 18 17 20 Blood Pressure 161/81 H 156/84 H Pulse Oximetry 97 97 96 Oxygen Delivery 04/13/25 03:34 04/13/25 05:38 Temperature 97.9 F 97.8 F Pulse Rate 103 H 103 H Respiratory Rate 20 18 Blood Pressure 156/84 H 177/88 H Pulse Oximetry 96 99 Oxygen Delivery Intake/Output Intake/Output: Intake & Output 04/10/25 04/11/25 04/12/25 04/13/25 23:59 23:59 23:59 23:59 Intake Total 1000 1060 Balance 1000 1060 Meds/Results Medications: Active Medications Generic Name Dose Route Start Last Admin Trade Name Freq PRN Reason Stop Dose Admin Chlordiazepoxide HCl 10 mg 04/13/25 14:00 Chlordiazepoxide (*Crx) 10 Mg Capsule PO Q8HR MISHEL Dextrose 12.5 gm 04/13/25 06:42 Dextrose 50% 25 Gm/50 Ml Syringe IV PUSH PRN PRN Hypoglycemia Protocol Glucagon 1 mg 04/13/25 06:42 Glucagon For Inj 1 Mg Vial IM PRN PRN Hypoglycemia Protocol Glucose 15 gm 04/13/25 06:42 Glucose Oral Gel 15 Gm Of Glucse In 37.5 Gm Tube PO PRN PRN Hypoglycemia Protocol Hydralazine HCl 10 mg 04/13/25 06:38 Hydralazine Hcl 20 Mg/Ml Vial IV PUSH Q8H PRN Blood Pressure - High Hydromorphone HCl 1 mg 04/13/25 06:39 04/13/25 06:56 Hydromorphone Hcl Inj (*Crx) 1 Mg/Ml Syr IV PUSH 1 mg Q3H PRN Administration Pain Rated 7-10 Lactated Ringer's 1,000 mls @ 125 mls/hr 04/13/25 01:55 04/13/25 02:10 Lr - Lactated Ringers Iv IV CONT 125 mls/hr .Q8H MISHEL Administration Dextrose 1,000 mls @ 100 mls/hr 04/13/25 06:42 Dextrose 5% 1,000 Ml IVPB PRN PRN Hypoglycemia Protocol Insulin Aspart 2 - 5 units 04/13/25 12:00 Insulin Aspart (*Bkc) 100 Units/Ml SUB-Q Q6HR MISHEL Protocol Ketorolac Tromethamine 15 mg 04/13/25 06:39 Ketorolac 15 Mg/Ml Vial (*Bkc) IV PUSH Q6H PRN Pain Rated 4-6 Lorazepam 1 mg 04/13/25 06:40 Lorazepam (*Crx) 1 Mg Tablet PO Q4H PRN Anxiety Labs Labs: Laboratory Results - last 24 hr 04/12/25 20:01 WBC 9.5 RBC 5.46 Hgb 12.6 L Hct 38.8 L MCV 71.1 L MCH 23.1 L MCHC 32.5 RDW 16.6 H Plt Count 256 MPV 8.7 Immature Gran % (Auto) 0.3 Neut % (Auto) 83.1 H Lymph % (Auto) 10.3 L [place] % (Auto) 6.0 Eos % (Auto) 0.1 Baso % (Auto) 0.2 Lymph # (Auto) 0.97 [place] # (Auto) 0.6 Eos # (Auto) 0.0 Baso # (Auto) 0.0 Abs Immat Gran (auto) 0.03 Absolute Neuts (auto) 7.9 H Absolute Nucleated RBC 0.000 Band Neutrophils % Not Reportable Nucleated RBC % 0.0 Platelet Estimate Adequate Anisocytosis 1+ Schistocytes None seen Sodium 133 L Potassium 3.7 Chloride 99 Carbon Dioxide 25 Anion Gap 9 BUN 16 Creatinine 1.12 Estim Creat Clear Calc 84 Estimated GFR > 60 Glucose 148 H Hemoglobin A1c 6.2 H Calcium 9.1 Total Bilirubin 1.1 AST 51 ALT 65 H Alkaline Phosphatase 69 Total Protein 8.5 H Albumin 4.6 Lipase 6075 H Quality VTE Prophylaxis VTE prophylaxis: mechanical ordered
[2025-04-13 08:00] LABS: Cholesterol 146 mg/dL (0-200); HDL Direct 52 mg/dL; Magnesium 1.8 mg/dL (1.6-2.3); Triglycerides 140 mg/dL (<150)
[2025-04-13] MEDS: KETOROLAC 15 MG/ML VIAL (*BKC) IV PUSH ×2 (10:17→18:07)
[2025-04-13 13:51] LABS: Lipase 5074 U/L (23-300)
[2025-04-13] MEDS: chlordiazePOXIDE (*CRX) 10 MG CAPSULE PO ×2 (14:04→21:11)
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
[2025-04-14] VITALS: BP 150/94; PULSE 103; RESP 16; TEMP 36.2; O2SAT 100
[2025-04-14] MEDS: HYDROmorphone HCL INJ (*CRX) 1 MG/ML SYR IV PUSH (02:49)
[2025-04-14] MEDS: LACTATED RINGERS 1,000 ML 125 ML IV CONT ×3 (02:53→20:39)
[2025-04-14 05:29] VITALS: BP 154/90; PULSE 100; RESP 18; TEMP 37.6; O2SAT 93
[2025-04-14 06:00] LABS: Alanine Aminotransferase 35 U/L (6-50); Albumin Level 3.4 g/dL (3.5-5.1); Alkaline Phosphatase 65 U/L (38-126); Anion Gap 4 mmol/L (4-12); Aspartate Amino Transferase 49 U/L (17-59); Bilirubin,Total 0.6 mg/dL (0.2-1.3); Blood Urea Nitrogen 11 mg/dL (9-20); Calcium 8.4 mg/dL (8.4-10.2); Carbon Dioxide 29 mmol/L (22-30); Chloride 98 mmol/L (98-107); Estimated CRCL calculation 92 ml/min; Estimated Glomerular Filt Rate > 60; Glucose 159 mg/dL (65-110); Lipase 1299 U/L (23-300); Potassium 4.0 mmol/L (3.4-5.0); Sodium 131 mmol/L (137-145); Total Protein 6.7 g/dL (6.3-8.2)
[2025-04-14 06:03] LABS: Iron 24 ug/dL (49-181)
[2025-04-14 06:12] LABS: Percent Iron Saturation 8 % (20-50)
[2025-04-14] MEDS: chlordiazePOXIDE (*CRX) 10 MG CAPSULE PO ×3 (06:18→21:46)
[2025-04-14 06:44] LABS: Ferritin 338.00 ng/mL (11.1-264)
[2025-04-14 07:11] LABS: Vitamin B12 397.0 pg/mL (239-931)
[2025-04-14] MEDS: KETOROLAC 15 MG/ML VIAL (*BKC) IV PUSH (08:13)
--- NOTE | 2025-04-14 09:35 | PM.IMPN ---
Progress Note: A&P Assessment and Plan (1) Pancreatitis: Code(s): K85.90 - Acute pancreatitis without necrosis or infection, unspecified Status: Acute Assessment and Plan: -the patient is NPO except for ice and meds. -CT abd/pelvis: Acute interstitial pancreatitis -abdominal US: dilated bile duct -most likely secondary to his alcohol intake. -lipase 6075 upon admission, rending down -continue with anti nausea medicine -continue with pain management: Decreased dilaudid 1>0.5mg q3 prn. Add oxycodone 10mg q4 prn 1st line -lipid panel wnl -GI consult - appreciate recommendations -Possible need for ERCP given dilated CBD on US (2) DM2 (diabetes mellitus, type 2): Code(s): E11.9 - Type 2 diabetes mellitus without complications Status: Acute Assessment and Plan: Home meds: Lantus 25 hs, Lispro 12 TID Appetite and pain improving. Blood sugars trending up -A1C 6.2% (04/12/2025) Accu-Cheks ACHS with sliding scale insulin. -check A1c. Last A1c in our system was 13.5 on 08/31/2023. -Lantus is on hold at this time, restart 15 units daily --Lispro 10 TID with meals, SSI (3) Hypertension: Code(s): I10 - Essential (primary) hypertension Status: Acute Assessment and Plan: -p.r.n. hydralazine -Resume home amlodipine, losartan, and carvedilol. Hold HCTZ (4) Alcohol abuse: Code(s): F10.10 - Alcohol abuse, uncomplicated Status: Acute Assessment and Plan: -p.r.n. P.o. Ativan -Ciwa -the patient stated that he drinks about a pt of vodka daily. -p.o. Librium Time Spent With Patient Time: 57 minutes Subjective Date/time seen: 04/14/25 09:35 Interval history: Still requiring IV dilaudid 1mg intermittently. Adding oxycodone and reducing dilaudid. Tolerating full liquids. Didn't feel eating was more painful. No nausea or vomiting. No BM overnight Discussed alcohol cessation and he felt confident he would quit. Not interested in AA. Reason for hospitalization 55-year-old male patient who presented to the hospital for epigastric discomfort and nausea, admitted for acute pancreatitis. Reports drinking a pt of vodka daily. Reported prior epigastric pain but had gone to urgent care in the past. Exam Narrative: General - Awake and alert. No acute distress Eyes - PERRLA, EOM intact ENT - No thrush, No erythema Neck - No noticeable or palpable swelling Lymph Nodes - No lymphadenopathy Cardiovascular - RRR no m/r/g, no JVD Lungs: Clear to auscultation, No wheezing, use of accessory muscles, no crackles Skin - Skin warm and dry, no wounds or rashes Abdomen - Normal bowel sounds, obese, abdomen soft and minimally tender upper abdomen Extremities - No edema, cyanosis or clubbing Musculoskeletal - 5/5 strength, normal range of motion, no swollen or erythematous joints. Neurological ? Alert and oriented x 3, CN 2-12 grossly intact. Psych: Normal mood and affect Objective Data Vital Signs Vital Signs: Vital Signs - 24 hr 04/13/25 12:51 04/13/25 14:20 04/13/25 15:00 Temperature 96.5 F L Pulse Rate 101 H Respiratory Rate 18 Blood Pressure 181/94 H 173/101 H 160/93 H Pulse Oximetry 97 04/13/25 19:15 04/14/25 00:00 04/14/25 05:29 Temperature 97.2 F L 99.6 F Pulse Rate 103 H 100 Respiratory Rate 16 18 Blood Pressure 138/92 H 150/94 H 154/90 H Pulse Oximetry 100 93 Intake/Output Intake/Output: Intake & Output 04/11/25 04/12/25 04/13/25 04/14/25 23:59 23:59 23:59 23:59 Intake Total 1000 3060 1162.3 Output Total 250 400 Balance 1000 2810 762.3 Meds/Results Medications: Active Medications Generic Name Dose Route Start Last Admin Trade Name Freq PRN Reason Stop Dose Admin Chlordiazepoxide HCl 10 mg 04/13/25 14:00 04/14/25 06:18 Chlordiazepoxide (*Crx) 10 Mg Capsule PO 10 mg Q8HR MISHEL Administration Dextrose 12.5 gm 04/13/25 06:42 Dextrose 50% 25 Gm/50 Ml Syringe IV PUSH PRN PRN Hypoglycemia Protocol Glucagon 1 mg 04/13/25 06:42 Glucagon For Inj 1 Mg Vial IM PRN PRN Hypoglycemia Protocol Glucose 15 gm 04/13/25 06:42 Glucose Oral Gel 15 Gm Of Glucse In 37.5 Gm Tube PO PRN PRN Hypoglycemia Protocol Hydralazine HCl 10 mg 04/13/25 06:38 04/13/25 12:14 Hydralazine Hcl 20 Mg/Ml Vial IV PUSH 10 mg Q8H PRN Administration Blood Pressure - High Hydromorphone HCl 1 mg 04/13/25 06:39 04/14/25 02:49 Hydromorphone Hcl Inj (*Crx) 1 Mg/Ml Syr IV PUSH 1 mg Q3H PRN Administration Pain Rated 7-10 Lactated Ringer's 1,000 mls @ 125 mls/hr 04/13/25 01:55 04/14/25 02:53 Lr - Lactated Ringers Iv IV CONT 125 mls/hr .Q8H MISHEL Administration Dextrose 1,000 mls @ 100 mls/hr 04/13/25 06:42 Dextrose 5% 1,000 Ml IVPB PRN PRN Hypoglycemia Protocol Insulin Aspart 2 - 5 units 04/13/25 12:00 04/14/25 08:11 Insulin Aspart (*Bkc) 100 Units/Ml SUB-Q Not Given Q6HR MISHEL Protocol Ketorolac Tromethamine 15 mg 04/13/25 06:39 04/14/25 08:13 Ketorolac 15 Mg/Ml Vial (*Bkc) IV PUSH 15 mg Q6H PRN Administration Pain Rated 4-6 Lorazepam 1 mg 04/13/25 06:40 Lorazepam (*Crx) 1 Mg Tablet PO Q4H PRN Anxiety Radiology Results: ITS Impressions Abdomen/Pelvis CT 04/13/25 08:56 IMPRESSION: 1. Acute interstitial pancreatitis. Abdomen Ultrasound 04/13/25 09:59 IMPRESSION: 1. Dilated common duct. Labs Labs: Laboratory Results - last 24 hr 04/13/25 04/13/25 04/13/25 07:19 13:10 18:26 Sodium Potassium Chloride Carbon Dioxide Anion Gap BUN Creatinine Estim Creat Clear Calc Estimated GFR Glucose POC Capillary Glucose 149 H 157 H Lactic Acid Calcium Iron TIBC % Saturation Ferritin Total Bilirubin AST ALT Alkaline Phosphatase Total Protein Albumin Lipase 5074 H Vitamin B12 Folate 04/14/25 04/14/25 00:04 05:21 Sodium 131 L Potassium 4.0 Chloride 98 Carbon Dioxide 29 Anion Gap 4 BUN 11 D Creatinine 1.10 Estim Creat Clear Calc 92 Estimated GFR > 60 Glucose 159 H POC Capillary Glucose 146 H Lactic Acid 0.9 Calcium 8.4 Iron 24 L TIBC 298 % Saturation 8 L Ferritin 338.00 H Total Bilirubin 0.6 AST 49 ALT 35 Alkaline Phosphatase 65 Total Protein 6.7 Albumin 3.4 L Lipase 1299 H Vitamin B12 397.0 Folate 14.5 Quality VTE Prophylaxis VTE prophylaxis: mechanical ordered Hospitalist MIPS Advance Care Plan I have confirmed that the patient's Advanced Care Plan is present, code status is documented, or surrogate decision maker is listed in patient medical record.: Yes Medication Reconciliation I have utilized all available resources to obtain, update and review the patients current medications (includes all prescriptions, OTC, herbals, cannabis, and nutritional supplements).: Yes
[2025-04-14 13:57] VITALS: BP 159/98; PULSE 116; RESP 18; TEMP 36.3; O2SAT 98
[2025-04-14] MEDS: oxyCODONE HCL (*CRX) 5 MG TAB IR 10 MG PO ×2 (13:59→21:49)
[2025-04-14] MEDS: LOSARTAN POTASSIUM 100 MG TABLET PO (15:58)
--- NOTE | 2025-04-14 16:30 | P.PNGI_ITS ---
Progress Note: A&P Assessment and Plan (1) Alcoholic pancreatitis: Code(s): K85.20 - Alcohol induced acute pancreatitis without necrosis or infection Status: Acute Assessment and Plan: clinically much better no elevated liver enzymes, ultrasound normal GB without stoned no need of scope or ercp, etiology is alcohol related (2) Abdominal pain: Code(s): R10.9 - Unspecified abdominal pain Status: Acute Assessment and Plan: better tolerating diet probably home tomorrow (3) DM2 (diabetes mellitus, type 2): Code(s): E11.9 - Type 2 diabetes mellitus without complications Status: Acute (4) Microcytic anemia: Code(s): D50.9 - Iron deficiency anemia, unspecified Status: Acute Assessment and Plan: had scopes last year will need to follow-up with pcp (5) Morbid obesity due to excess calories: Code(s): E66.01 - Morbid (severe) obesity due to excess calories Status: Acute Subjective Date/time seen: 04/14/25 16:30 Interval history: tolerating diet and pain is much better Review of Systems Review of Systems: All systems reviewed & are unremarkable except as noted in HPI and below Exam Const: General: comfortable and no acute distress HENMT: Face/Nose/Sinus: Normal nares present Eyes: General: appearance normal, both eyes and all related structures Neck: Neck: supple and no JVD Resp: Auscultation: clear to auscultation bilaterally Cardio: Rate: regular rate Rhythm: regular rhythm GI: Inspection: non-distended GI Palp: Yes Soft to palpation and Yes Te nderness to palpation present (GI) (improved) Auscultation: normal bowel sounds Skin: General skin exam: normal color Neuro: Speech: normal speech Motor exam (neuro): 5/5 motor strength present throughout Extrem: General: normal to inspection Psych: Mental Status: mental status grossly normal Objective Data Vital Signs Vital Signs: Vital Signs - 24 hr 04/13/25 19:15 04/14/25 00:00 04/14/25 05:29 Temperature 97.2 F L 99.6 F Pulse Rate 103 H 100 Respiratory Rate 16 18 Blood Pressure 138/92 H 150/94 H 154/90 H Pulse Oximetry 100 93 Oxygen Delivery 04/14/25 09:30 04/14/25 13:57 Temperature 97.4 F L Pulse Rate 116 H Respiratory Rate 18 Blood Pressure 159/98 H Pulse Oximetry 98 Oxygen Delivery Room Air Intake/Output Intake/Output: Intake & Output 04/11/25 04/12/25 04/13/25 04/14/25 23:59 23:59 23:59 23:59 Intake Total 1000 3060 2162.3 Output Total 250 400 Balance 1000 2810 1762.3 Meds/Results Medications: Active Medications Generic Name Dose Route Start Last Admin Trade Name Freq PRN Reason Stop Dose Admin Amlodipine Besylate 10 mg 04/14/25 15:25 04/14/25 15:58 Amlodipine Besylate 10 Mg Tablet PO 10 mg DAILY MISHEL Administration Atorvastatin Calcium 10 mg 04/14/25 21:00 Atorvastatin 10 Mg Tablet PO HS MISHEL Carvedilol 12.5 mg 04/14/25 21:00 Carvedilol 12.5 Mg Tablet PO Q12H MISHEL Chlordiazepoxide HCl 10 mg 04/13/25 14:00 04/14/25 13:58 Chlordiazepoxide (*Crx) 10 Mg Capsule PO 10 mg Q8HR MISHEL Administration Dextrose 12.5 gm 04/14/25 15:34 Dextrose 50% 25 Gm/50 Ml Syringe IV PUSH PRN PRN Hypoglycemia Protocol Glucagon 1 mg 04/14/25 15:34 Glucagon For Inj 1 Mg Vial IM PRN PRN Hypoglycemia Protocol Glucose 15 gm 04/14/25 15:34 Glucose Oral Gel 15 Gm Of Glucse In 37.5 Gm Tube PO PRN PRN Hypoglycemia Protocol Hydralazine HCl 10 mg 04/13/25 06:38 04/13/25 12:14 Hydralazine Hcl 20 Mg/Ml Vial IV PUSH 10 mg Q8H PRN Administration Blood Pressure - High Hydromorphone HCl 0.5 mg 04/14/25 15:25 Hydromorphone Hcl Inj (*Crx) 1 Mg/Ml Syr IV PUSH Q3H PRN Second line for pain Lactated Ringer's 1,000 mls @ 125 mls/hr 04/13/25 01:55 04/14/25 12:17 Lr - Lactated Ringers Iv IV CONT 125 mls/hr .Q8H MISHEL Administration Dextrose 1,000 mls @ 100 mls/hr 04/14/25 15:34 Dextrose 5% 1,000 Ml IVPB PRN PRN Hypoglycemia Protocol Insulin Aspart 2 - 5 units 04/13/25 12:00 04/14/25 13:18 Insulin Aspart (*Bkc) 100 Units/Ml SUB-Q Not Given Q6HR [facility] Protocol Insulin Aspart 10 units 04/14/25 17:00 Insulin Aspart (*Bkc) 100 Units/Ml 0.067 units/kg (10 units) SUB-Q TIDWM [facility] Insulin Glargine 15 units 04/14/25 17:00 Insulin Glargine (*Bkc) 100 Units/Ml SUB-Q DAILY@1700 [facility] Ketorolac Tromethamine 15 mg 04/13/25 06:39 04/14/25 08:13 Ketorolac 15 Mg/Ml Vial (*Bkc) IV PUSH 15 mg Q6H PRN Administration Pain Rated 4-6 Lorazepam 1 mg 04/13/25 06:40 Lorazepam (*Crx) 1 Mg Tablet PO Q4H PRN Anxiety Losartan Potassium 100 mg 04/14/25 15:25 04/14/25 15:58 Losartan Potassium 100 Mg Tablet PO 100 mg DAILY [facility] Administration Oxycodone HCl 10 mg 04/14/25 13:18 04/14/25 13:59 Oxycodone Hcl (*Crx) 5 Mg Tab Ir PO 10 mg Q4H PRN Administration 1st line for pain Radiology Results: ITS Impressions Abdomen/Pelvis CT 04/13/25 08:56 IMPRESSION: 1. Acute interstitial pancreatitis. Abdomen Ultrasound 04/13/25 09:59 IMPRESSION: 1. Dilated common duct. Labs Labs: Laboratory Results - last 24 hr 04/13/25 04/14/25 04/14/25 18:26 00:04 05:21 Sodium 131 L Potassium 4.0 Chloride 98 Carbon Dioxide 29 Anion Gap 4 BUN 11 D Creatinine 1.10 Estim Creat Clear Calc 92 Estimated GFR > 60 Glucose 159 H POC Capillary Glucose 157 H 146 H Lactic Acid 0.9 Calcium 8.4 Iron 24 L TIBC 298 % Saturation 8 L Ferritin 338.00 H Total Bilirubin 0.6 AST 49 ALT 35 Alkaline Phosphatase 65 Total Protein 6.7 Albumin 3.4 L Lipase 1299 H Vitamin B12 397.0 Folate 14.5 04/14/25 11:18 Sodium Potassium Chloride Carbon Dioxide Anion Gap BUN Creatinine Estim Creat Clear Calc Estimated GFR Glucose POC Capillary Glucose 156 H Lactic Acid Calcium Iron TIBC % Saturation Ferritin Total Bilirubin AST ALT Alkaline Phosphatase Total Protein Albumin Lipase Vitamin B12 Folate
[2025-04-14] MEDS: INSULIN ASPART (*BKC) 100 UNITS/ML 10 UNITS SUB-Q (17:23)
[2025-04-14] MEDS: INSULIN GLARGINE (*BKC) 100 UNITS/ML 15 UNITS SUB-Q (17:28)
[2025-04-14 21:23] VITALS: BP 143/83; PULSE 105; RESP 16; TEMP 36.6; O2SAT 95
[2025-04-14 21:46] VITALS: PULSE 76
[2025-04-14] MEDS: ATORVASTATIN 10 MG TABLET PO (21:46)
[2025-04-15] MEDS: LACTATED RINGERS 1,000 ML 125 ML IV CONT (04:41)
[2025-04-15 05:31] VITALS: BP 158/80; PULSE 97; RESP 16; TEMP 36.3; O2SAT 97
[2025-04-15] MEDS: chlordiazePOXIDE (*CRX) 10 MG CAPSULE PO (06:03)
--- NOTE | 2025-04-15 08:13 | PM.IMPN ---
Progress Note: A&P Assessment and Plan (1) Pancreatitis: Code(s): K85.90 - Acute pancreatitis without necrosis or infection, unspecified Status: Acute Assessment and Plan: -the patient is NPO except for ice and meds. -CT abd/pelvis: Acute interstitial pancreatitis -abdominal US: dilated bile duct -most likely secondary to his alcohol intake. -lipase 6075 upon admission, rending down -continue with anti nausea medicine -continue with pain management: Decreased dilaudid 1>0.5mg q3 prn. Add oxycodone 10mg q4 prn 1st line -lipid panel wnl -GI consult - appreciate recommendations -Possible need for ERCP given dilated CBD on US (2) DM2 (diabetes mellitus, type 2): Code(s): E11.9 - Type 2 diabetes mellitus without complications Status: Acute Assessment and Plan: Home meds: Lantus 25 hs, Lispro 12 TID Appetite and pain improving. Blood sugars trending up -A1C 6.2% (04/12/2025) Accu-Cheks ACHS with sliding scale insulin. -check A1c. Last A1c in our system was 13.5 on 08/31/2023. -Lantus is on hold at this time, restart 15 units daily --Lispro 10 TID with meals, SSI (3) Hypertension: Code(s): I10 - Essential (primary) hypertension Status: Acute Assessment and Plan: -p.r.n. hydralazine -Resume home amlodipine, losartan, and carvedilol. Hold HCTZ (4) Alcohol abuse: Code(s): F10.10 - Alcohol abuse, uncomplicated Status: Acute Assessment and Plan: -p.r.n. P.o. Ativan -Ciwa -the patient stated that he drinks about a pt of vodka daily. -p.o. Librium Subjective Date/time seen: 04/15/25 08:13 Interval history: Last dose of dilaudid was last night Exam Narrative: General - Awake and alert. No acute distress Eyes - PERRLA, EOM intact ENT - No thrush, No erythema Neck - No noticeable or palpable swelling Lymph Nodes - No lymphadenopathy Cardiovascular - RRR no m/r/g, no JVD Lungs: Clear to auscultation, No wheezing, use of accessory muscles, no crackles Skin - Skin warm and dry, no wounds or rashes Abdomen - Normal bowel sounds, obese, abdomen soft and minimally tender upper abdomen Extremities - No edema, cyanosis or clubbing Musculoskeletal - 5/5 strength, normal range of motion, no swollen or erythematous joints. Neurological ? Alert and oriented x 3, CN 2-12 grossly intact. Psych: Normal mood and affect Objective Data Vital Signs Vital Signs: Vital Signs - 24 hr 04/14/25 09:30 04/14/25 13:57 04/14/25 21:23 Temperature 97.4 F L 97.9 F Pulse Rate 116 H 105 H Respiratory Rate 18 16 Blood Pressure 159/98 H 143/83 H Pulse Oximetry 98 95 Oxygen Delivery Room Air 04/14/25 21:46 04/15/25 05:31 Temperature 97.3 F L Pulse Rate 76 97 Respiratory Rate 16 Blood Pressure 158/80 H Pulse Oximetry 97 Oxygen Delivery Intake/Output Intake/Output: Intake & Output 04/12/25 04/13/25 04/14/25 04/15/25 23:59 23:59 23:59 23:59 Intake Total 1000 3060 3402.3 1240 Output Total 250 1225 Balance 1000 2810 2177.3 1240 Meds/Results Medications: Active Medications Generic Name Dose Route Start Last Admin Trade Name Freq PRN Reason Stop Dose Admin Amlodipine Besylate 10 mg 04/14/25 15:25 04/14/25 15:58 Amlodipine Besylate 10 Mg Tablet PO 10 mg DAILY MISHEL Administration Atorvastatin Calcium 10 mg 04/14/25 21:00 04/14/25 21:46 Atorvastatin 10 Mg Tablet PO 10 mg HS MISHEL Administration Carvedilol 12.5 mg 04/14/25 21:00 04/14/25 21:46 Carvedilol 12.5 Mg Tablet PO 12.5 mg Q12H MISHEL Administration Chlordiazepoxide HCl 10 mg 04/15/25 18:00 Chlordiazepoxide (*Crx) 10 Mg Capsule PO Q12H MISHEL Dextrose 12.5 gm 04/14/25 15:34 Dextrose 50% 25 Gm/50 Ml Syringe IV PUSH PRN PRN Hypoglycemia Protocol Glucagon 1 mg 04/14/25 15:34 Glucagon For Inj 1 Mg Vial IM PRN PRN Hypoglycemia Protocol Glucose 15 gm 04/14/25 15:34 Glucose Oral Gel 15 Gm Of Glucse In 37.5 Gm Tube PO PRN PRN Hypoglycemia Protocol Hydralazine HCl 10 mg 04/13/25 06:38 04/13/25 12:14 Hydralazine Hcl 20 Mg/Ml Vial IV PUSH 10 mg Q8H PRN Administration Blood Pressure - High Hydromorphone HCl 0.5 mg 04/14/25 15:25 Hydromorphone Hcl Inj (*Crx) 1 Mg/Ml Syr IV PUSH Q3H PRN Second line for pain Lactated Ringer's 1,000 mls @ 125 mls/hr 04/13/25 01:55 04/15/25 04:41 Lr - Lactated Ringers Iv IV CONT 125 mls/hr .Q8H MISHEL Administration Dextrose 1,000 mls @ 100 mls/hr 04/14/25 15:34 Dextrose 5% 1,000 Ml IVPB PRN PRN Hypoglycemia Protocol Insulin Aspart 2 - 5 units 04/13/25 12:00 04/15/25 05:24 Insulin Aspart (*Bkc) 100 Units/Ml SUB-Q Not Given Q6HR [facility] Protocol Insulin Aspart 10 units 04/14/25 17:00 04/14/25 17:23 Insulin Aspart (*Bkc) 100 Units/Ml 0.067 units/kg (10 units) 10 units SUB-Q Administration TIDWM [facility] Insulin Glargine 15 units 04/14/25 17:00 04/14/25 17:28 Insulin Glargine (*Bkc) 100 Units/Ml SUB-Q 15 units DAILY@1700 [facility] Administration Ketorolac Tromethamine 15 mg 04/13/25 06:39 04/14/25 08:13 Ketorolac 15 Mg/Ml Vial (*Bkc) IV PUSH 15 mg Q6H PRN Administration Pain Rated 4-6 Lorazepam 1 mg 04/13/25 06:40 Lorazepam (*Crx) 1 Mg Tablet PO Q4H PRN Anxiety Losartan Potassium 100 mg 04/14/25 15:25 04/14/25 15:58 Losartan Potassium 100 Mg Tablet PO 100 mg DAILY MISHEL Administration Oxycodone HCl 10 mg 04/14/25 13:18 04/14/25 21:49 Oxycodone Hcl (*Crx) 5 Mg Tab Ir PO 10 mg Q4H PRN Administration 1st line for pain Radiology Results: ITS Impressions Abdomen/Pelvis CT 04/13/25 08:56 IMPRESSION: 1. Acute interstitial pancreatitis. Abdomen Ultrasound 04/13/25 09:59 IMPRESSION: 1. Dilated common duct. Labs Labs: Laboratory Results - last 24 hr 04/14/25 04/14/25 04/14/25 11:18 16:40 19:22 POC Capillary Glucose 156 H 169 H 178 H 04/14/25 04/15/25 04/15/25 23:53 06:29 07:24 POC Capillary Glucose 131 H 137 H 116 H Quality VTE Prophylaxis VTE prophylaxis: mechanical ordered
[2025-04-15 08:38] LABS: Hematocrit 32.4 % (42.0-52.0); Hemoglobin 10.0 g/dL (14.0-18.0); Immature Granulocyte Percent A 0.7 % (0-0.5); Lymphocytes Absolute Auto 1.06 K/mm3 (0.9-3.2); Mean Corpuscular HGB Conc 30.9 g/dl (32-36); Mean Corpuscular Hemoglobin 22.7 pg (26-34); Mean Corpuscular Volume 73.6 fl (80-100); Nucleated Red Blood Cells Absolute Auto 0.000 K/mm3 (0.0-0.012); Nucleated Red Blood Cells Perc 0.0 % (0.0-0.2); Platelet Count Result 193 k/mm3 (150-375); Red Blood Count 4.40 M/mm3 (4.6-6.20); White Blood Count 9.1 K/mm3 (4.5-10.0)
[2025-04-15 09:00] LABS: Alanine Aminotransferase 28 U/L (6-50); Albumin Level 3.2 g/dL (3.5-5.1); Alkaline Phosphatase 61 U/L (38-126); Anion Gap 3 mmol/L (4-12); Aspartate Amino Transferase 40 U/L (17-59); Bilirubin,Total 0.5 mg/dL (0.2-1.3); Blood Urea Nitrogen 11 mg/dL (9-20); Calcium 8.3 mg/dL (8.4-10.2); Carbon Dioxide 31 mmol/L (22-30); Chloride 99 mmol/L (98-107); Estimated CRCL calculation 88 ml/min; Estimated Glomerular Filt Rate > 60; Glucose 126 mg/dL (65-110); Hypochromasia Occasional; Microcytosis 1+ (NORMAL); Potassium 3.9 mmol/L (3.4-5.0); Schistocytes None Seen; Sodium 133 mmol/L (137-145); Tear Drop Cells Occasional; Total Protein 6.6 g/dL (6.3-8.2)
[2025-04-15 09:32] VITALS: PULSE 97
[2025-04-15] MEDS: INSULIN ASPART (*BKC) 100 UNITS/ML 10 UNITS SUB-Q (09:32)
[2025-04-15] MEDS: LOSARTAN POTASSIUM 100 MG TABLET PO (09:32)
--- NOTE | 2025-04-15 11:11 | PM.DS ---
DS: Admitting Diagnosis Discharge Date 04/15/2025 Admitting Diagnosis Acute pancreatitis Alcohol Abuse DS: Discharge Diagnosis Discharge Diagnosis (1) Alcohol abuse: Code(s): F10.10 - Alcohol abuse, uncomplicated Status: Acute (2) Alcoholic pancreatitis: Code(s): K85.20 - Alcohol induced acute pancreatitis without necrosis or infection Status: Acute (3) Pancreatitis: Code(s): K85.90 - Acute pancreatitis without necrosis or infection, unspecified Status: Acute DS: Summary Hospital Course Reason for hospitalization: Copied from [facility] 04/13 This is a 55-year-old male patient who drinks a pt of vodka daily. The patient came to the emergency room with epigastric discomfort and nausea. The patient has been drinking every day. He denies having any history of pancreatitis. H&H is 12.6 and 38.8. Sodium is 133 and glucose 148. ALT is 65 total protein 8.5. Lipase is 6075. CT-abdomen per radiology interpretation consistent with pancreatitis. The patient was started on elected Ringer's, given a GI cocktail, Zofran, morphine, and ketorolac in the emergency room. The patient is being admitted to the floor observation on the date of service of 04/13/2025 Hospital Course: Acute pancreatitis CT abd/pelvis: Acute interstitial pancreatitis abdominal US: dilated bile duct lipase 6075 upon admission, rending down. Lipid panel WNL -continued antiemetics, pain control: Decreased dilaudid 1>0.5mg q3 prn. Add oxycodone 10mg q4 prn 1st line -GI consulted, appreciate recommendations. Did not require intervention DM2 (diabetes mellitus, type 2): Home meds: Lantus 25 hs, Lispro 12 TID Appetite and pain improving. Blood sugars trending up A1C 6.2% (04/12/2025) Prior A1c in our system was 13.5 on 08/31/2023. Accu-Cheks ACHS with sliding scale insulin during admission Resumed home insulin for discharge Hypertension: -Resumed home amlodipine, losartan, and carvedilol. initially held HCTZ and resumed Alcohol abuse: Required P.o. Ativan -the patient stated that he drinks about a pt of vodka daily. -Interested in cessation and discharged with a librium prn. Discussed a taper for symptoms Status at Discharge Cognitive/behavioral status at discharge: A&Ox4 Time Spent with Patient Time attestation: Total time spent providing and/or coordinating discharge services:45 minutes Exam Narrative: General - Awake and alert. No acute distress Eyes - PERRLA, EOM intact ENT - No thrush, No erythema Neck - No noticeable or palpable swelling Lymph Nodes - No lymphadenopathy Cardiovascular - RRR no m/r/g, no JVD Lungs: Clear to auscultation, No wheezing or use of accessory muscles, no crackles Skin - Skin warm and dry, no wounds or rashes Abdomen - Normal bowel sounds, abdomen soft and nontender Extremities - No edema, cyanosis or clubbing Musculoskeletal - 5/5 strength, normal range of motion, no swollen or erythematous joints. Neurological ? Alert and oriented x 3, CN 2-12 grossly intact. Psych: Normal mood and affect DS: Data Data Completed and Pending Labs on day of discharge: Labs from last 24 hours 04/15/25 04/15/25 04/15/25 08:14 07:24 06:29 WBC 9.1 RBC 4.40 L Hgb 10.0 L Hct 32.4 L MCV 73.6 L MCH 22.7 L MCHC 30.9 L RDW 16.8 H Plt Count 193 MPV 9.8 Immature Gran % (Auto) 0.7 H Neut % (Auto) 71.3 Lymph % (Auto) 11.6 L [place] % (Auto) 13.9 H Eos % (Auto) 2.3 Baso % (Auto) 0.2 Lymph # (Auto) 1.06 [place] # (Auto) 1.3 H Eos # (Auto) 0.2 Baso # (Auto) 0.0 Abs Immat Gran (auto) 0.06 H Absolute Neuts (auto) 6.5 Absolute Nucleated RBC 0.000 Band Neutrophils % Not Reportable Nucleated RBC % 0.0 Platelet Estimate Adequate Hypochromasia Occasional Microcytosis 1+ Tear Drop Cells Occasional Schistocytes None seen Sodium 133 L Potassium 3.9 Chloride 99 Carbon Dioxide 31 H Anion Gap 3 L BUN 11 Creatinine 1.15 Estim Creat Clear Calc 88 Estimated GFR > 60 Glucose 126 H POC Capillary Glucose 116 H 137 H Calcium 8.3 L Total Bilirubin 0.5 AST 40 ALT 28 Alkaline Phosphatase 61 Total Protein 6.6 Albumin 3.2 L 04/14/25 04/14/25 04/14/25 23:53 19:22 16:40 WBC RBC Hgb Hct MCV MCH MCHC RDW Plt Count MPV Immature Gran % (Auto) Neut % (Auto) Lymph % (Auto) [place] % (Auto) Eos % (Auto) Baso % (Auto) Lymph # (Auto) [place] # (Auto) Eos # (Auto) Baso # (Auto) Abs Immat Gran (auto) Absolute Neuts (auto) Absolute Nucleated RBC Band Neutrophils % Nucleated RBC % Platelet Estimate Hypochromasia Microcytosis Tear Drop Cells Schistocytes Sodium Potassium Chloride Carbon Dioxide Anion Gap BUN Creatinine Estim Creat Clear Calc Estimated GFR Glucose POC Capillary Glucose 131 H 178 H 169 H Calcium Total Bilirubin AST ALT Alkaline Phosphatase Total Protein Albumin 04/14/25 11:18 WBC RBC Hgb Hct MCV MCH MCHC RDW Plt Count MPV Immature Gran % (Auto) Neut % (Auto) Lymph % (Auto) [place] % (Auto) Eos % (Auto) Baso % (Auto) Lymph # (Auto) [place] # (Auto) Eos # (Auto) Baso # (Auto) Abs Immat Gran (auto) Absolute Neuts (auto) Absolute Nucleated RBC Band Neutrophils % Nucleated RBC % Platelet Estimate Hypochromasia Microcytosis Tear Drop Cells Schistocytes Sodium Potassium Chloride Carbon Dioxide Anion Gap BUN Creatinine Estim Creat Clear Calc Estimated GFR Glucose POC Capillary Glucose 156 H Calcium Total Bilirubin AST ALT Alkaline Phosphatase Total Protein Albumin Discharge Plan Discharge Attending physician on discharge: Maddy Velazco Consulting providers: Sotero Franz; Brian Dowell; Rajiv Chakraborty; Ivy Barnard; John Gómez V. Discharging Clinician: Maddy Velazco Anticipated Discharge Date/Time: 04/15/25 11:12 Patient Disposition: Home Activity: may shower Diet: low cholesterol and low fat Discharge Instructions: Follow up with your PCP in 1-2 weeks Can take librium 1-2 times a day as needed for up to 5 days for anxiety/tremors. Do not drink alcohol if taking librium No alcohol at all to prevent future pancreatitis flares May take over the counter acetaminophen (tylenol) as needed for pain. If still having pain with acetaminophen you can add ibuprofen for 2-3 days as needed. Patient Instructions: Antibiotic Form Patient Language: Arabic Stand Alone Forms: General Discharge Information, Work/School Release IP Follow-up/Referrals: Remi Bryant MD [Primary Care Provider, Family Practice] - 2 Weeks Discharge Medications: New chlordiazepoxide HCl 10 mg capsule 10 mg PO BID PRN (Reason: anxiety) Qty: 8 0RF Continued insulin lispro-aabc 100 unit/mL insulin pen 12 unit subcut TID Qty: 15 0RF insulin glargine [Lantus Solostar U-100 Insulin] 100 unit/mL (3 mL) insulin pen 25 unit subcut QPM Qty: 15 0RF (DME) blood-glucose meter [[employer] Glucose Monitoring] Kit See Rx Instructions .Route Qty: 1 0RF Rx Instructions: As directed (DME) CareTouch Test Strip Strip Qty: 120 0RF Rx Instructions: As Directed (DME) lancets [[employer]Touch Safety Lancets] 28 gauge Misc Qty: 100 0RF Rx Instructions: As Directed (DME) pen needle, diabetic [CareTouch Pen Needle] 31 gauge x 3/16 Needle Qty: 120 0RF Rx Instructions: As Directed carvedilol 12.5 mg tablet 12.5 mg PO Q12H atorvastatin 10 mg tablet 10 mg PO HS amlodipine 10 mg tablet 10 mg PO DAILY losartan 100 mg tablet 100 mg PO DAILY hydrochlorothiazide 12.5 mg tablet 12.5 mg PO DAILY multivitamin Tablet 1 tablet PO DAILY Date of admission: 04/13/25 07:29 Primary Care Provider: Remi Bryant Admitting Provider: Silvio Mart Attending physician on admission: Maddy Velazco Condition: Stable Quality VTE Prophylaxis VTE prophylaxis: mechanical ordered Hospitalist MIPS Heart Failure (Exclusion) Patient has history of Heart Transplant or Left Ventricular Assistive Device?: No IF YES, STOP HERE Heart Failure (Qualifier) Patient has current or prior documentation of LVEF less than or equal to 40%, or mod/servere depressed LVSF?: No IF NO, STOP HERE
== END 2025-04-15 12:13 | disposition home or self-care (01) | DRG 439 ==
LOC: ANHED 20:22 → ANH3MEDSUR 04-13 02:51
PROVIDERS: Internal Medicine Gastroenterology; Nurse Practitioner; Admitting Provider Internal Medicine; Emergency Provider Emergency Medicine; PCP Emergency Medicine; Visit Provider Nurse Practitioner Acute Care
DX: K85.20 Alcohol induced acute pancreatitis without necrosis or infection (principal); Z68.43 Body mass index [BMI] 50.0-59.9, adult; I10 Essential (primary) hypertension; E11.9 Type 2 diabetes mellitus without complications; E78.5 Hyperlipidemia, unspecified; E66.01 Morbid (severe) obesity due to excess calories; F10.10 Alcohol abuse, uncomplicated; Z79.4 Long term (current) use of insulin; D50.9 Iron deficiency anemia, unspecified
CPT/HCPCS: 36415; 74177; 76705; 80053; 80061; 82607; 82728; 82746; 82948; 83036; 83540; 83550; 83605; 83690; 83735; 85025; 93005; 96361; 96374; 96375; 99285; A9270; G0378; J0360; J1171; J1815; J1885; J2270; J7120; Q9967